=== PATIENT | male | born 1945 ===

== ENCOUNTER 2017-12-13 05:41 | Observation (INO) | payer MEDICARE, MEDICAID ==
[~2017-12-13] VITALS: Ht 177.8 cm; Wt 74.8 kg
[2017-12-13] VITALS (13 sets, daily range): BP systolic 142–164; BP diastolic 75–83
[2017-12-13] MEDS ORDERED: Iothalamate Meglumine 60% 30ML INJ ONE ×2 (06:13→08:07)
[2017-12-13] MEDS ORDERED: NKM (06:27)
[2017-12-13] MEDS ORDERED: fentaNYL 100 mcg/2 mL IV ONE (06:40)
[2017-12-13] MEDS ORDERED: Dexamethasone 4mg/ml vial ONE (06:40)
[2017-12-13] MEDS ORDERED: Propofol 200mg/20ml IV ONE (06:40)
[2017-12-13] MEDS ORDERED: Lidocaine 1% MPF 10mg/ml 5ml ONE (06:40)
[2017-12-13] MEDS ORDERED: Midazolam 2mg/2ml Inj ONE (06:41)
[2017-12-13] MEDS ORDERED: Succinylcholine 20mg/ml 10ml vial ONE (06:53)
[2017-12-13] MEDS ORDERED: NS Irrig 4000ml IRRIG ONE (07:00)
[2017-12-13] MEDS ORDERED: ceFAZolin sod 1 GM in NS 55 ML IVPB SCH (07:00)
[2017-12-13] MEDS ORDERED: NS Irrig 1000ml ONE (07:00)
[2017-12-13] MEDS ORDERED: Sterile Water Irrig 1000ml IRRIG ONE (07:00)
[2017-12-13] MEDS ORDERED: LR 1000ml ONE (07:00)
--- NOTE | 2017-12-13 07:12 | Anethesia Preoperative Eval ---
Anesthesia Pre-op PMH/ROS General Date of Evaluation: Dec 13, 2017 Time of Evaluation: 07:00 Anesthesiologist: Devon ASA Score: ASA 3 Mallampati Score Class I : Soft palate, uvula, fauces, pillars visible Class II: Soft palate, uvula, fauces visible Class III: Soft palate, base of uvula visible Class IV: Only hard plate visible Mallampati Classification: Class I Surgeon: B Diagnosis: Renal CA hydronephrosis Surgical Procedure: cysto, retrograde pyelogram, stent placement Anesthesia History: none Family History: no anesthesia problems Allergies: Coded Allergies: No Known Allergies (Unverified , 12/12/17) Medications: see eMAR Past Medical History Cardiovascular: Reports: HTN, other - unclear h/o of a fib PMH Narrative: renall cancer colon cancer chemotherapy Anesthesia Pre-op Phys. Exam Physician Exam Last Vital Signs Date Time Temp Pulse Resp B/P (MAP) Pulse Ox O2 Delivery O2 Flow Rate FiO2 12/13/17 06:28 Room Air 12/13/17 06:25 97.8 57 18 162/77 (105) 99 97.8 Constitutional: NAD Neurologic: other Cardiovascular: RRR Respiratory: CTA Airway Exam Mallampati Score: Class I MO: full ROM: full Anesthesia Pre-op A/P Risk Assessment & Plan Assessment: ASA 3 Plan: GA with LMA vs ETT PONV prophylaxis periop ABX Status Change Before Surgery: No Pre-Antibiotics Drug: ANCEF 2 G Given Within 1 Hr of Incision: Yes Hailee Osorio M.D. Dec 13, 2017 07:12
--- NOTE | 2017-12-13 07:15 | Urology Progress Note ---
Assessment/Plan Assessment/Plan left hydro BPH hx LUTS hx plan left ureteral stent d/w pt fully Subjective Allergies: Coded Allergies: No Known Allergies (Unverified , 12/12/17) Subjective hx of met colon ca, left hydro, for stent today Objective Last 24 Hour Vital Signs Date Time Temp Pulse Resp B/P (MAP) Pulse Ox O2 Delivery O2 Flow Rate FiO2 12/13/17 06:28 Room Air 12/13/17 06:25 97.8 57 18 162/77 (105) 99 97.8 Height (Feet): 5 Height (Inches): 10.00 Weight (Pounds): 165 Objective exam stable TOÑOFRANCHESKAARIEL Dec 13, 2017 07:15
--- NOTE | 2017-12-13 07:16 | Pre-Procedure Note/Attestation ---
Pre-Procedure Note/Attestation Complete Prior to Procedure Planned Procedure: left Procedure Narrative: cysto, left retrograde, ureteroscopy, ureteral stent Indications for Procedure Pre-Operative Diagnosis: hydronephrosis Attestation I attest that I discussed the nature of the procedure; its benefits; risks and complications; and alternatives (and the risks and benefits of such alternatives ), prior to the procedure, with the patient (or the patient's legal technical sales representative). I attest that, if there was a reasonable possibility of needing a blood transfusion, the patient (or the patient's legal technical sales representative) was given the [facility] standardized written summary, pursuant to the Mark Hagerman Blood Safety Act ([place] Health and Safety Code # 1645, as amended). I attest that I re-evaluated the patient just prior to the surgery and that there has been no change in the patient's H&P, except as documented below: ARIEL THOMPSON Dec 13, 2017 07:16
[2017-12-13] MEDS ORDERED: Glycopyrrolate 0.2mg/ml 1ml Vial ONE (07:31)
[2017-12-13] MEDS ORDERED: Atropine Inj 1mg/10ml Syr IV PRN (08:30)
[2017-12-13] MEDS ORDERED: Hydromorphone 0.5mg/0.5ml inj IVP PRN (08:30)
[2017-12-13] MEDS ORDERED: Metoclopramide 10mg/2ml Inj IVP PRN (08:30)
[2017-12-13] MEDS ORDERED: fentaNYL 100 mcg/2 mL IV PRN (08:30)
--- NOTE | 2017-12-13 08:49 | Brief Operative Note ---
Immediate Post Operative Note Operative Note Pre-op Diagnosis: hydronephrosis Post-op Diagnosis: same as pre-op Findings: other - very tight stricture/stenosis of mid left ureter with significant turtousity and dilation of prox collecting system Surgeon: julius Anesthesiologist: nanci Anesthesia: general Specimen: none Complications: none Condition: stable Fluids: NS Estimated Blood Loss: minimal Implant(s) used?: Yes - 7f x 24 cm left ureteral JJ stent ARIEL THOMPSON Dec 13, 2017 08:49
--- NOTE | 2017-12-13 09:07 | Immediate Post-Op Evaluation ---
Immediate Post-Op Evalulation Immediate Post-Op Evalulation Procedure: cysto retrograde pyelogram L ureteroscopy with dilation and stent placement Date of Evaluation: Dec 13, 2017 Time of Evaluation: 08:39 IV Fluids: 500 Blood Products: none Estimated Blood Loss: minimal Urinary Output: in the field Blood Pressure Systolic: 160 Blood Pressure Diastolic: 77 Pulse Rate: 74 Respiratory Rate: 18 O2 Sat by Pulse Oximetry: 100 Temperature (Fahrenheit): 98.4 Pain Score (1-10): 0 Nausea: No Vomiting: No Patient Status: awake, reacts, extubated Hydration Status: adequate Drug: Ancef Given Within 1 Hr of Incision: Yes Time Given: 07:29 Hailee Osorio M.D. Dec 13, 2017 09:07
--- NOTE | 2017-12-13 09:08 | 48 Hour Post Anesthesia Eval ---
Post Anesthesia Evaluation Procedure: cysto retrograde pyelogram L ureteroscopy with dilation and stent placement Date of Evaluation: Dec 13, 2017 Time of Evaluation: 09:07 Blood Pressure Systolic: 144 0: 71 Pulse Rate: 62 Respiratory Rate: 18 Temperature (Fahrenheit): 98.4 O2 Sat by Pulse Oximetry: 99 Airway: patent Nausea: No Vomiting: No Pain Intensity: 0 Hydration Status: adequate Mental Status/LOC: patient returned to baseline Post-Anesthesia Complications: none Follow-up care needed: N/A Hailee Osorio M.D. Dec 13, 2017 09:08
--- NOTE | 2017-12-13 10:41 | History & Physical ---
History and Physical History & Physicial seen and examined. Full Dictation completed Misa Phillips MD Dec 13, 2017 10:41
--- NOTE | 2017-12-13 11:04 | Diagnostic Imaging Report ---
Indication: History of hydronephrosis, intraoperative imaging Technique: Intraoperative images Comparison: none Findings: Intraoperative imaging demonstrates opacification of the left inferior and hydronephrotic left renal collecting system, subsequently placement of left nephroureteral stent Impression: Intraoperative imaging, as described
[2017-12-13] MEDS ORDERED: Norco 5mg/325mg tab ORAL PRN (12:55)
[2017-12-13] MEDS: ceFAZolin 1gm/50ml Premix 50 ML IV SCH (15:32)
[2017-12-13] MEDS: D5NS 1,000 ML IV SCH (15:32)
[2017-12-13] MEDS: Metoprolol 25mg tab ORAL SCH (20:40)
[2017-12-13] MEDS: Amiodarone 200mg tab ORAL SCH (20:40)
[2017-12-13] MEDS ORDERED: Tamsulosin 0.4mg cap ORAL SCH (21:00)
--- NOTE | 2017-12-13 22:00 | History and Physical Report ---
DATE OF ADMISSION: 12/13/2017 SOURCE OF INFORMATION: The patient and the EMR. HISTORY OF PRESENT ILLNESS: The patient is an unfortunate, pleasant 72-year-old male with history of metastatic colon cancer, lymphoma, and renal cancer. The patient is status post elective surgery secondary to the obstructive hydronephrosis on the left side. At the time of evaluation, the patient denies any chest pain or shortness of breath. No nausea. No vomitus. No diarrhea. No constipation. PAST MEDICAL HISTORY: Metastatic colon cancer, renal cancer, lymphoma, and atrial fibrillation. PAST SURGICAL HISTORY: History of liver biopsy and colectomy. ALLERGIES: NKDA. MEDICATIONS: Outpatient medications including Eliquis, finasteride, tamsulosin, amiodarone, and metoprolol. SOCIAL HISTORY: The patient lives in an independent living. Positive for THC as outpatient. Denies history of alcohol abuse or tobacco use. FAMILY HISTORY: Reviewed and noncontributory. REVIEW OF SYSTEMS: All 12 elements of review of systems reviewed, pertinent positive and negative as above. PHYSICAL EXAMINATION: VITAL SIGNS: Blood pressure 160/80, temperature 98.2 degrees, pulse oximetry 98% on room air, respiratory rate 18, and pulse rate 60-70. HEAD AND NECK: Atraumatic and normocephalic. CHEST: Clear to auscultation. No wheezing. No crackles. HEART: S1 and S2. Regular rate and rhythm. ABDOMEN: Protuberant. Bowel sounds are normal. NEUROLOGIC: The patient is awake, alert, and oriented x3. MUSCULOSKELETAL: No gross focal motor deficit. GENITALIA: Jackson in place. LABORATORY AND DIAGNOSTIC DATA: Current laboratory results pending. ASSESSMENT AND PLAN: 1. Obstructive left-sided hydronephrosis at the level of mid ureter, status post elective surgery followed by stent placements. 2. Metastatic colon cancer. 3. Renal cancer. 4. Lymphoma. 5. Hypertension. 6. Atrial fibrillation. 7. Benign prostatic hypertrophy. 8. Gastrointestinal and deep venous thrombosis prophylaxis. I will resume the outpatient medications. Current postoperative management per Dr. Rice. Oncology, Dr. Jean, has been consulted. Misa Phillips M.D. DR: MIRELA JOB#: [id number] CC:
[2017-12-14] MEDS: ceFAZolin 1gm/50ml Premix 50 ML IV SCH ×2 (01:41→08:36)
[2017-12-14] MEDS: D5NS 1,000 ML IV SCH (01:41)
--- NOTE | 2017-12-14 03:00 | Consultation ---
DATE OF CONSULTATION: 12/13/2017 HEMATOLOGY/ONCOLOGY CONSULTATION CONSULTING PHYSICIAN: Melquiades Jean M.D. REQUESTING PHYSICIAN: Misa Phillips M.D. REASON FOR CONSULTATION: Evaluation of metastatic colon cancer. IDENTIFYING DATA: Dear Dr. Phillips: The patient is a pleasant 72-year-old male whom I have seen multiple times in the past. At this time, he has a history of metastatic colon cancer and getting chemotherapy in the office, status post procedure with Urology. He had stent placement by Dr. Rice. Hematology Service was consulted for further evaluation and treatment. PAST MEDICAL HISTORY: Metastatic colon cancer. PAST SURGICAL HISTORY: Status post stent placement in . ALLERGIES: No known drug allergies. FAMILY HISTORY: Noncontributory. REVIEW OF SYSTEMS: CONSTITUTIONAL: No fevers, chills, or night sweats. SKIN: No rashes, bumps, or itching. HEENT: No headache, hearing or visual changes. BREASTS: No lumps, pain, or discharge. PULMONARY: No cough, sputum, or shortness of breath. GASTROINTESTINAL: No nausea, vomiting, or diarrhea. GENITOURINARY: No dysuria, frequency, or urgency. MUSCULOSKELETAL: No joint swelling, muscle pain, or trauma. PHYSICAL EXAMINATION: VITAL SIGNS: Reviewed. GENERAL: No acute distress. PULMONARY: Decreased breath sounds. Some crackles at the bases. CARDIOVASCULAR: Regular rate. No S3 or S4. ABDOMEN: Soft, nontender, and nondistended. EXTREMITIES: No cyanosis, clubbing, or edema. LABORATORY DATA: Labs are pending. ASSESSMENT AND RECOMMENDATIONS: 1. Metastatic colon cancer. Continue chemotherapy in the office. 2. Anemia due to underlying anemia of chronic disease. Continue to closely monitor. 3. Hypertension. Systolic blood pressure goal is less than 140. 4. Hydronephrosis, status post stent placement. CEA is pending. 5. due to metastatic colon cancer. I appreciate the consultation. Melquiades Jean M.D. DR: TAYLER JOB#: [id number] CC:
--- NOTE | 2017-12-14 04:30 | Operative Note - Dictated ---
DATE OF OPERATION: 12/13/2017 "NOTE: POOR AUDIO QUALITY" PREOPERATIVE DIAGNOSIS: Left-sided hydronephrosis. POSTOPERATIVE DIAGNOSIS: Left-sided hydronephrosis. PROCEDURES PERFORMED: Cystoscopy, urethral calibration, left ureteroscopy, dilation of ureter, retrograde pyelogram, and placement of double-J stent. OPERATING SURGEON: Ruel Rice M.D. ANESTHESIOLOGIST: Hailee Osorio M.D. ANESTHESIA: General. INDICATION FOR PROCEDURE: This is a pleasant 72-year-old male. He has a history of metastatic colon cancer. He had a recent imaging study that showed some left-sided hydronephrosis, presumably secondary to compression of the ureter from adenopathy, and a decision was made to place a stent on obstructive kidney and maximize his renal function. The nature of the procedure was discussed with the patient extensively in detail. Possible risks and complication of bleeding, infection, anesthesia, damage to the urethra, bladder, and ureter, and need for further surgery were discussed. No guarantees were given or implied. FINDINGS: The patient appeared with a low-lying kidney. He had a very severe stricture seen in the mid ureter at the level of the pelvic brim. This was dilated. He had significant tortuosity of the ureter. The stent was placed. PROCEDURE IN DETAIL: Informed consent was obtained from the patient. The patient was brought to the operating room and then placed in supine position. After successful general anesthesia was induced, the patient was then placed in a modified dorsal lithotomy position, and genital area was then prepped and draped in usual sterile fashion. Preoperative IV antibiotics were administered. Time-out was performed. At this point, the distal urethral meatus was gently dilated. Cystoscopy was performed. The urethra was without strictures. The prostate was moderately obstructed. The bladder was inspected. I did not see any tumors. The left urethral orifice was identified and cannulated with an open-ended catheter. Retrograde pyelogram was done. There was significant stricture at area of the ureter in the mid ureter with some draining the contrast proximally. The kidney appeared to be low-lying. I have been attempting to pass the wire through this area and significant obstruction was noted. I tried both angled wire and straight wire, and again it was very difficult to pass the wire through. I was eventually able to negotiate the wire into the proximal part of the collecting system. It appeared that the proximal part was also severely torturous and the collecting system was moderately dilated, but the kidney appeared to be low-lying. The wire was then left as a safety wire. Ureteroscopy was then performed. The ureter distally was very tight and again with significant stricture formation. Again, I believe secondary to extrinsic compression. I then used a 10-Polish dual-lumen catheter to dilate this and the wire was cystoscope and a 7-Polish x 24 cm double-J stent was then passed up into the collecting system under fluoroscopic and visual guidance, appeared to be in good position with a good curl in the proximal collecting system and good curl in the bladder. Small tumor was in the bladder and the Jackson catheter was removed. The patient was awakened and taken to the recovery room in stable condition. Blood loss was minimal. No complication. Ruel Rice M.D. DR: JOE JOB#: [id number] CC: Wyatt Jean MD; Fax#: [phone] SHANA STEPHENSON M.D. ; FAX#: [phone]
[2017-12-14 07:20] LABS: ALANINE AMINOTRANSFERASE 19 U/L (12-78); ALBUMIN 3.2 G/DL (3.4-5.0); ALKALINE PHOSPHATASE 196 U/L (46-116); ANION GAP 13 mmol/L (5-15); ASPARTATE AMINO TRANSFERASE 27 U/L (15-37); BILIRUBIN,TOTAL 0.5 MG/DL (0.2-1.0); BLOOD UREA NITROGEN 21 mg/dL (7-18); CARBON DIOXIDE 23 MMOL/L (21-32); CHLORIDE 102 MMOL/L (98-107); CREATININE 1.2 MG/DL (0.55-1.30); SODIUM 138 MMOL/L (136-145)
[2017-12-14 07:24] LABS: HEMATOCRIT 32.7 % (42.0-52.0); MEAN CORPUSCULAR VOLUME 87 FL (80-99); PLATELET COUNT 97 K/UL (150-450); RED BLOOD COUNT 3.77 M/UL (4.70-6.10); RED CELL DISTRIBUTION WIDTH 13.8 % (11.6-14.8)
[2017-12-14 08:36] VITALS: BP 162/73
[2017-12-14] MEDS: Amiodarone 200mg tab ORAL SCH (08:36)
[2017-12-14] MEDS: Metoprolol 25mg tab ORAL SCH (08:36)
[2017-12-14] MEDS ORDERED: Enoxaparin 40mg Inj SUBQ SCH (09:00)
--- NOTE | 2017-12-14 09:09 | Urology Progress Note ---
Assessment/Plan Assessment/Plan left hydro BPH hx LUTS hx POD # 1, s/p left ureteral stent doing fair quarles hand irrigated, no clots dc home with quarles and leg bag f/u in office Saturday to remove quarles rx for abx, uribel and norco Subjective Allergies: Coded Allergies: No Known Allergies (Unverified , 12/12/17) Subjective all noted, feels fair Objective Last 24 Hour Vital Signs Date Time Temp Pulse Resp B/P (MAP) Pulse Ox O2 Delivery O2 Flow Rate FiO2 12/14/17 08:36 78 162/73 12/13/17 20:40 61 162/75 12/13/17 17:07 97.3 12/13/17 16:08 97.3 12/13/17 16:00 98.3 72 19 142/83 (102) 100 98.3 12/13/17 12:00 97.3 58 18 154/75 (101) 100 97.3 12/13/17 11:00 Nasal Cannula 2.0 12/13/17 11:00 98.1 63 20 154/77 (102) 100 98.1 12/13/17 10:00 97.9 64 18 160/79 (106) 100 97.9 12/13/17 09:32 97.2 63 18 150/80 100 Nasal Cannula 3 97.2 12/13/17 09:20 63 16 153/78 100 Nasal Cannula 3 12/13/17 09:10 67 20 150/79 100 Nasal Cannula 3 Intake and Output 12/13/17 12/14/17 19:00 07:00 Intake Total 600 ml Output Total 1460 ml Balance -860 ml Intake IV Total 600 ml Output Urine Total 1450 ml Estimated Blood Loss 10 ml Current Medications Medications (Trade) Dose Ordered Sig/Sulma Route PRN Reason Start Time Stop Time Status Last Admin Dose Admin Acetaminophen/ Hydrocodone Bitart ([place] 5/325) 1 tab Q4H PRN ORAL Moderate Pain (Pain Scale 4-6) 12/13/17 12:55 12/20/17 12:54 12/13/17 16:08 Amiodarone HCl (Cordarone) 200 mg EVERY 12 HOURS ORAL 12/13/17 21:00 01/12/18 20:59 12/14/17 08:36 Cefazolin Sodium 50 ml @ 100 mls/hr Q8H IV 12/13/17 15:30 12/20/17 15:29 12/14/17 08:36 Dextrose/Sodium Chloride 1,000 ml @ 75 mls/hr [id number] IV 12/13/17 13:30 01/12/18 13:29 12/14/17 01:41 Enoxaparin Sodium (Lovenox) 40 mg DAILY SUBQ 12/14/17 09:00 01/13/18 08:59 Finasteride (Proscar) 5 mg DAILY ORAL 12/14/17 09:00 01/13/18 08:59 12/14/17 08:36 Metoprolol Tartrate (Lopressor) 25 mg Q12HR ORAL 12/13/17 21:00 01/12/18 20:59 12/14/17 08:36 Tamsulosin HCl (Flomax) 0.4 mg BEDTIME ORAL 12/13/17 21:00 01/12/18 20:59 12/13/17 20:40 Laboratory Tests 12/13/17 14:45: Carcinoembryonic Antigen [Pending] 12/14/17 05:00: White Blood Count 9.0, Red Blood Count 3.77L, Hemoglobin 11.0L, Hematocrit 32.7L , Mean Corpuscular Volume 87, Mean Corpuscular Hemoglobin 29.2, Mean Corpuscular Hemoglobin Concent 33.7, Red Cell Distribution Width 13.8, Platelet Count 97L, Mean Platelet Volume 8.1, Neutrophils (%) (Auto) , Lymphocytes (%) ( Auto) , Monocytes (%) (Auto) , Eosinophils (%) (Auto) , Basophils (%) (Auto) , Neutrophils % (Manual) [Pending], Lymphocytes % (Manual) [Pending], Platelet Estimate [Pending], Platelet Morphology [Pending], Sodium Level 138, Potassium Level 4.0, Chloride Level 102, Carbon Dioxide Level 23, Anion Gap 13, Blood Urea Nitrogen 21H, Creatinine 1.2, Estimat Glomerular Filtration Rate , Glucose Level 117H, Calcium Level 8.0L, Total Bilirubin 0.5, Aspartate Amino Transf (AST /SGOT) 27, Alanine Aminotransferase (ALT/SGPT) 19, Alkaline Phosphatase 196H, Total Protein 6.5, Albumin 3.2L, Globulin 3.3, Albumin/Globulin Ratio 1.0 Height (Feet): 5 Height (Inches): 10.00 Weight (Pounds): 165 Objective exam, quarles indwelling, urine is blood-tinged ARIEL THOMPSON Dec 14, 2017 09:09
[2017-12-14] MEDS ORDERED: CIPROFLOXACIN500 M2 ORAL (09:28)
[2017-12-14] MEDS ORDERED: NORCO 10-325 T1 EACH ORAL (09:28)
--- NOTE | 2017-12-14 13:18 | General Progress Note ---
Assessment/Plan Assessment/Plan S: I am ok O: appearrs comfortble, post procedure. FU PRN PHYSICAL EXAMINATION:HEAD AND NECK: Atraumatic and normocephalic. CHEST: Clear to auscultation. No wheezing. No crackles. HEART: S1 and S2. Regular rate and rhythm. ABDOMEN: Protuberant. Bowel sounds are normal. NEUROLOGIC: The patient is awake, alert, and oriented x3. MUSCULOSKELETAL: No gross focal motor deficit. GENITALIA: Jackson in place. LABORATORY AND DIAGNOSTIC DATA: Current laboratory results pending. Meds: reviewed. on PO ciprofloxacin ASSESSMENT AND PLAN: 1. Obstructive left-sided hydronephrosis at the level of mid ureter, status post elective surgery followed by stent placements. 2. Metastatic colon cancer. 3. Renal cancer. 4. Lymphoma. 5. Hypertension. 6. Atrial fibrillation. 7. Benign prostatic hypertrophy. 8. Gastrointestinal and deep venous thrombosis prophylaxis. Plan: Medically stable for outpatient followup Subjective Allergies: Coded Allergies: No Known Allergies (Unverified , 12/12/17) Objective Last 24 Hour Vital Signs Date Time Temp Pulse Resp B/P (MAP) Pulse Ox O2 Delivery O2 Flow Rate FiO2 12/14/17 08:36 78 162/73 12/13/17 20:40 61 162/75 12/13/17 17:07 97.3 12/13/17 16:08 97.3 12/13/17 16:00 98.3 72 19 142/83 (102) 100 98.3 Intake and Output 12/13/17 12/14/17 19:00 07:00 Intake Total 600 ml Output Total 1460 ml Balance -860 ml Intake IV Total 600 ml Output Urine Total 1450 ml Estimated Blood Loss 10 ml Laboratory Tests 12/13/17 14:45: Carcinoembryonic Antigen [Pending] 12/14/17 05:00: White Blood Count 9.0, Red Blood Count 3.77L, Hemoglobin 11.0L, Hematocrit 32.7L , Mean Corpuscular Volume 87, Mean Corpuscular Hemoglobin 29.2, Mean Corpuscular Hemoglobin Concent 33.7, Red Cell Distribution Width 13.8, Platelet Count 97L, Mean Platelet Volume 8.1, Neutrophils (%) (Auto) , Lymphocytes (%) ( Auto) , Monocytes (%) (Auto) , Eosinophils (%) (Auto) , Basophils (%) (Auto) , Differential Total Cells Counted 100, Neutrophils % (Manual) 69, Lymphocytes % ( Manual) 29, Monocytes % (Manual) 1, Eosinophils % (Manual) 1, Basophils % ( Manual) 0, Band Neutrophils 0, Platelet Estimate DecreasedL, Platelet Morphology Normal, Hypochromasia 1+, Anisocytosis 1+, Sodium Level 138, Potassium Level 4.0, Chloride Level 102, Carbon Dioxide Level 23, Anion Gap 13, Blood Urea Nitrogen 21H, Creatinine 1.2, Estimat Glomerular Filtration Rate , Glucose Level 117H, Calcium Level 8.0L, Total Bilirubin 0.5, Aspartate Amino Transf (AST/SGOT) 27, Alanine Aminotransferase (ALT/SGPT) 19, Alkaline Phosphatase 196H, Total Protein 6.5, Albumin 3.2L, Globulin 3.3, Albumin/ Globulin Ratio 1.0 Height (Feet): 5 Height (Inches): 10.00 Weight (Pounds): 165 Misa Phillips MD Dec 14, 2017 13:18
--- NOTE | 2017-12-14 14:55 | General Progress Note ---
Assessment/Plan Status: stable Assessment/Plan 1. Metastatic colon cancer. Continue chemotherapy in the office. 2. Anemia due to underlying anemia of chronic disease. Continue to closely monitor. 3. Hypertension. Systolic blood pressure goal is less than 140. 4. Hydronephrosis, status post stent placement. CEA is pending. The time the note was entered does not necessarily correspond to the time the patient was seen. Subjective Date patient seen: Dec 14, 2017 ROS Limited/Unobtainable: Yes Hematologic/Lymphatic: Reports: anemia Allergies: Coded Allergies: No Known Allergies (Unverified , 12/12/17) All Systems: reviewed and negative except above Subjective Pt is awake and alert. No acute events. DC planning. Objective Last 24 Hour Vital Signs Date Time Temp Pulse Resp B/P (MAP) Pulse Ox O2 Delivery O2 Flow Rate FiO2 12/14/17 08:36 78 162/73 12/13/17 20:40 61 162/75 12/13/17 17:07 97.3 12/13/17 16:08 97.3 12/13/17 16:00 98.3 72 19 142/83 (102) 100 98.3 Intake and Output 12/13/17 12/14/17 19:00 07:00 Intake Total 600 ml Output Total 1460 ml Balance -860 ml Intake IV Total 600 ml Output Urine Total 1450 ml Estimated Blood Loss 10 ml Laboratory Tests 12/14/17 05:00: White Blood Count 9.0, Red Blood Count 3.77L, Hemoglobin 11.0L, Hematocrit 32.7L , Mean Corpuscular Volume 87, Mean Corpuscular Hemoglobin 29.2, Mean Corpuscular Hemoglobin Concent 33.7, Red Cell Distribution Width 13.8, Platelet Count 97L, Mean Platelet Volume 8.1, Neutrophils (%) (Auto) , Lymphocytes (%) ( Auto) , Monocytes (%) (Auto) , Eosinophils (%) (Auto) , Basophils (%) (Auto) , Differential Total Cells Counted 100, Neutrophils % (Manual) 69, Lymphocytes % ( Manual) 29, Monocytes % (Manual) 1, Eosinophils % (Manual) 1, Basophils % ( Manual) 0, Band Neutrophils 0, Platelet Estimate DecreasedL, Platelet Morphology Normal, Hypochromasia 1+, Anisocytosis 1+, Sodium Level 138, Potassium Level 4.0, Chloride Level 102, Carbon Dioxide Level 23, Anion Gap 13, Blood Urea Nitrogen 21H, Creatinine 1.2, Estimat Glomerular Filtration Rate , Glucose Level 117H, Calcium Level 8.0L, Total Bilirubin 0.5, Aspartate Amino Transf (AST/SGOT) 27, Alanine Aminotransferase (ALT/SGPT) 19, Alkaline Phosphatase 196H, Total Protein 6.5, Albumin 3.2L, Globulin 3.3, Albumin/ Globulin Ratio 1.0 Height (Feet): 5 Height (Inches): 10.00 Weight (Pounds): 165 General Appearance: no apparent distress EENT: PERRL/EOMI Neck: normal alignment Cardiovascular: normal peripheral pulses Respiratory/Chest: no respiratory distress Abdomen: soft Melquiades Jean MD Dec 14, 2017 14:55
--- NOTE | 2017-12-20 11:08 | Discharge Summary ---
Discharge Summary Hospital Course Date of Admission Dec 13, 2017 at 10:19 Date of Discharge Dec 14, 2017 at 10:00 Admitting Diagnosis obstructive left sided hydronephrosis Reason for Hospitalization: surgery HPI Martinez Walsh is a 72 year old male with past medical history of metastatic colon cancer, lymphoma, renal cancer, hypertension, atrial fibrillation, BPH, admitted on Dec 13, 2017 for obstructive left sided hydronephrosis and hematuria. Patient admitted for surgery Consultations dr Phillips -IM dr Jean-oncologist Procedures s/p 12/13/[address] Rice Cystoscopy, urethral calibration, left ureteroscopy, dilation of ureter, retrograde pyelogram, and placement of double-J stent. Hospital Course s/p surgery with findings of very tight stricture/stenosis of mid left ureter with significant tortuosity and dilation of prox collecting system s/p double J stent placement course of recovery uneventful initially IVF empiric antibiotic Jackson cath , no clots on manual irrigation pain management , controlled tolerated diet, a/emetic prn Flomax and Proscar continued BP closely monitored and managed by IM doctor BB and Amiodarone continued, heart rate controlled bowel regimen institute oncologist followed anemia of underlying chronic disease, HH at baseline CEA significantly elevated -249 DVT, GI prophayxlis surgeon cleared for dc with Jackson ; leg bag provided fup with urologist at office as outpt for removal of Jackson scripts provided for [place], [place] and antibiotic FINAL DIAGNOSES obstructive left hydronephrosis s/p cystoscopy, urethral calibration, left ureteroscopy, dilation of ureter, retrograde pyelogram, and placement of double-J stent metastatic colon cancer lymphoma renal cancer hypertension atrial fibrillation BPH anemia due to underlying anemia of chronic disease. Discharge Medications Continued Medications: Ciprofloxacin Hcl* (Ciprofloxacin Hcl*) 500 Mg Tablet 500 MG ORAL EVERY 12 HOURS, TAB 0 Refills (This prescription has been renewed) Hydrocodone Bit/Acetaminophen 10-325* ([place] 10-325*) 1 Each Tablet 1 TAB ORAL Q4H PRN for For Pain, TAB 0 Refills (This prescription has been renewed) PRN PAIN Discharge Discharge Disposition Patient was discharged to Home () Discharge Instructions Discharge Instructions Special Instructions I have been assigned to complete a D/C Summary on this account. I was not involved in the patient management Nhi Harris NP Dec 20, 2017 11:08
== END 2017-12-14 10:00 | disposition home or self-care (01) ==
LOC: SUR 05:41 → 3E 10:19 → UNDODISOB 12-14 10:00
DX: N13.1 Hydronephrosis with ureteral stricture, not elsewhere classified (principal); C18.9 Malignant neoplasm of colon, unspecified; C79.9 Secondary malignant neoplasm of unspecified site; C64.9 Malignant neoplasm of unspecified kidney, except renal pelvis; C85.90 Non-Hodgkin lymphoma, unspecified, unspecified site; I10 Essential (primary) hypertension; I48.91 Unspecified atrial fibrillation; Z79.01 Long term (current) use of anticoagulants; D63.8 Anemia in other chronic diseases classified elsewhere; N40.1 Benign prostatic hyperplasia with lower urinary tract symptoms; N13.8 Other obstructive and reflux uropathy
CPT/HCPCS: 36415; 52332; 52351; 74420; 76000; 80053; 82378; 85007; 85025; 96360 ×2; 96365 ×2; G0378 ×2; G0379; J0360; J0690 ×2; J1100; J2250; J2405; J2704; J3010; J7120; Q9961; 94003; 94150

== ENCOUNTER 2018-05-16 05:07 | Day surgery (SDC) | payer MEDICARE, MEDICAID ==
[2018-05-16] VITALS (14 sets, daily range): BP systolic 128–207; BP diastolic 75–108
[~2018-05-16] VITALS: Ht 177.8 cm; Wt 72.6 kg
[~2018-05-16 05:07] MED LIST: CIPROFLOXACIN500 M2 ORAL; NKM; NORCO 10-325 T1 EACH ORAL
[2018-05-16] MEDS ORDERED: METOPROLOL TART50 MG ORAL (05:49)
[2018-05-16] MEDS ORDERED: LR 1000ml 1,000 ML IVLG SCH (06:31)
--- NOTE | 2018-05-16 06:31 | Anethesia Preoperative Eval ---
Anesthesia Pre-op PMH/ROS General Date of Evaluation: May 16, 2018 Anesthesiologist: Morgan ASA Score: ASA 3 Mallampati Score Class I : Soft palate, uvula, fauces, pillars visible Class II: Soft palate, uvula, fauces visible Class III: Soft palate, base of uvula visible Class IV: Only hard plate visible Mallampati Classification: Class I Surgeon: Dwayne Diagnosis: Left hydronephrosis Surgical Procedure: cystoscopy, ureteroscopy, stent exchange Anesthesia History: none Family History: no anesthesia problems Allergies: Coded Allergies: No Known Allergies (Unverified , 12/12/17) Medications: see eMAR Patient NPO?: Yes NPO Date: May 16, 2018 NPO Time: 22:00 Past Medical History Cardiovascular: Reports: HTN; Denies: CAD, [place], valve dz, arrhythmia, other Pulmonary: Denies: asthma, COPD, SANTOSH, other Gastrointestinal/Genitourinary: Reports: other - BPH; Denies: GERD, CRI, ESRD Neurologic/Psychiatric: Denies: dementia, CVA, depression/anxiety, TIA, other Endocrine: Denies: DM, hypothyroidism, steroids, other HEENT: Denies: cataract (L), cataract (R), glaucoma, EMMONAK (L), EMMONAK (R), other Hematology/Immune: Denies: anemia, DVT, bleeding disorder, other Musculoskeletal/Integumentary: Denies: OA, RA, DJD, DDD, edema, other Other: other - colon cancer, kidney cancer, leukemia PSxH Narrative: left nephrectomy, colon resectin Anesthesia Pre-op Phys. Exam Physician Exam Last Vital Signs Date Time Temp Pulse Resp B/P (MAP) Pulse Ox O2 Delivery O2 Flow Rate FiO2 05/16/18 05:54 97.7 72 18 192/92 100 Room Air Constitutional: NAD Cardiovascular: RRR Respiratory: CTA Airway Exam Mallampati Score: Class II MO: limited ROM: limited Anesthesia Pre-op A/P Labs see chart Studies Pre-op Studies: EKG - sr Risk Assessment & Plan Assessment: ASA III Plan: GA Status Change Before Surgery: No Pre-Antibiotics Drug: Glory Almaguer MD May 16, 2018 06:31
[2018-05-16] MEDS ORDERED: DiphenhydrAMINE 50mg/ml Inj IVP PRN (06:45)
[2018-05-16] MEDS ORDERED: Metoclopramide 10mg/2ml Inj IVP PRN (06:45)
[2018-05-16] MEDS ORDERED: Hydromorphone 0.5mg/0.5ml inj IVP PRN (06:45)
[2018-05-16] MEDS ORDERED: fentaNYL 100 mcg/2 mL IV PRN (06:45)
[2018-05-16] MEDS ORDERED: LORazepam Inj 2mg/ml 1ml IV PRN (06:45)
[2018-05-16] MEDS ORDERED: Propofol 200mg/20ml IV ONE (06:55)
[2018-05-16] MEDS ORDERED: Midazolam 2mg/2ml Inj ONE (06:55)
[2018-05-16] MEDS ORDERED: fentaNYL 100 mcg/2 mL IV ONE (06:55)
[2018-05-16] MEDS ORDERED: Lidocaine 1% MPF 10mg/ml 5ml ONE (06:55)
[2018-05-16] MEDS ORDERED: Cefepime HCl 1 GM in D5W 55 ML IVPB ONE (07:00)
[2018-05-16] MEDS ORDERED: NS Irrig 1000ml ONE (07:00)
[2018-05-16] MEDS ORDERED: Labetalol 5mg/ml 20ml vial IV ONE (07:00)
[2018-05-16] MEDS ORDERED: LR 1000ml ONE (07:00)
[2018-05-16] MEDS ORDERED: Iothalamate Meglumine 60% 30ML INJ ONE (07:04)
--- NOTE | 2018-05-16 07:15 | Urology Progress Note ---
Assessment/Plan Assessment/Plan hx of left hydro, chronic BPH hx LUTS hx plan exchange of left ureteral stent today d/w pt fully Subjective Allergies: Coded Allergies: No Known Allergies (Unverified , 12/12/17) Subjective all noted, for left ureteral stent exchange today Objective Last 24 Hour Vital Signs Date Time Temp Pulse Resp B/P (MAP) Pulse Ox O2 Delivery O2 Flow Rate FiO2 05/16/18 05:54 97.7 72 18 192/92 100 Room Air 05/16/18 05:52 Room Air Height (Feet): 5 Height (Inches): 10 Weight (Pounds): 160 Objective exam stable Preop labs all noted Ruel Rice MD May 16, 2018 07:15
--- NOTE | 2018-05-16 07:17 | Pre-Procedure Note/Attestation ---
Pre-Procedure Note/Attestation Complete Prior to Procedure Planned Procedure: left Procedure Narrative: cystoscopy, exchange of ureteral stent, ureteroscopy with dilation Indications for Procedure Pre-Operative Diagnosis: hydronephrosis Attestation I attest that I discussed the nature of the procedure; its benefits; risks and complications; and alternatives (and the risks and benefits of such alternatives ), prior to the procedure, with the patient (or the patient's legal product sales representative). I attest that, if there was a reasonable possibility of needing a blood transfusion, the patient (or the patient's legal product sales representative) was given the [facility] standardized written summary, pursuant to the Mark Gilberto Blood Safety Act ([place] Health and Safety Code # 1645, as amended). I attest that I re-evaluated the patient just prior to the surgery and that there has been no change in the patient's H&P, except as documented below: Ruel Rice MD May 16, 2018 07:17
--- NOTE | 2018-05-16 08:27 | Brief Operative Note ---
Immediate Post Operative Note Operative Note Pre-op Diagnosis: hydronephrosis Procedure: cysto, exchange of left ureteral stent, ureteroscopy with dilation, retrograde pyelogram Post-op Diagnosis: same as pre-op Findings: consistent w/pre-op dx studies - severe stenosis of proximal left ureter, low lying left kidney Anesthesia: general Specimen: yes - ureteral stent Complications: none Condition: stable Fluids: NS Estimated Blood Loss: minimal Drains: none Implant(s) used?: Yes - 7f x 22 cm left ureteral JJ stent Ruel Rice MD May 16, 2018 08:27
--- NOTE | 2018-05-16 08:32 | Immediate Post-Op Evaluation ---
Immediate Post-Op Evalulation Immediate Post-Op Evalulation Procedure: Cystoscopy, left ureteroscopy, ureteral stent exchange Date of Evaluation: May 16, 2018 Time of Evaluation: 08:32 IV Fluids: 700 Blood Products: 0 Estimated Blood Loss: min Urinary Output: 0 Blood Pressure Systolic: 195 Blood Pressure Diastolic: 103 Pulse Rate: 71 Respiratory Rate: 17 O2 Sat by Pulse Oximetry: 100 Temperature (Fahrenheit): 97.8 Pain Score (1-10): 0 Nausea: No Vomiting: No Complications 0 Patient Status: awake, reacts, patent, none Hydration Status: adequate Drug: Ancef 1g Given Within 1 Hr of Incision: Yes Time Given: 07:20 Glory Moreira MD May 16, 2018 08:32
--- NOTE | 2018-05-16 08:32 | 48 Hour Post Anesthesia Eval ---
Post Anesthesia Evaluation Procedure: Cystoscopy, left ureteroscopy, ureteral stent exchange Date of Evaluation: May 16, 2018 Airway: patent Nausea: No Vomiting: No Pain Intensity: 0 Hydration Status: adequate Cardiopulmonary Status: at baseline Mental Status/LOC: patient returned to baseline Post-Anesthesia Complications: 0 Follow-up care needed: N/A - further care as per primary team Glory Moreira MD May 16, 2018 08:32
[2018-05-16] MEDS: D5 1/2NS 1,000 ML IV SCH ×2 (11:21→22:35)
--- NOTE | 2018-05-16 11:30 | NUR ---
NURSE NOTES: Received report from GRAY Cortes. Patient in bed resting, denies pain at this time with all belongings. No active s/s cardiac, respiratory distress noticed at this time. VS at the time of arrival T 97.5, HR 79, RR 21, O2 sat 99%, BP 178/87. Endorsed 10 mg of hydralazine given. IV on right forearm 20 G asymptomatic, intact, patent. IV running at prescribed rate. Bed in lowest position, side rails upx3, call light within reach. Patient AO x4, On 2L via NC. Will continue to monitor.
[2018-05-16] MEDS ORDERED: Morphine Sulfate 4mg/ml Inj (IV USE ONLY) IVP PRN (12:45)
[2018-05-16] MEDS: Metoprolol Succinate XL 50mg tab ORAL SCH (13:55)
--- NOTE | 2018-05-16 16:17 | History & Physical ---
History and Physical History & Physicial SOURCE OF INFORMATION: The patient and the EMR. HISTORY OF PRESENT ILLNESS: The patient is an unfortunate, pleasant 72-year-old male with history of metastatic colon cancer, lymphoma, and renal cancer. The patient is status post elective surgery secondary to the obstructive hydronephrosis on the left Ureter. At the time of evaluation, the patient denies any chest pain or shortness of breath. No nausea. No vomitus. No diarrhea. No constipation. PAST MEDICAL HISTORY: Metastatic colon cancer, renal cancer, lymphoma, and atrial fibrillation. Obstructive uropathy of left Ureter with stent in place PAST SURGICAL HISTORY: History of liver biopsy and colectomy. ALLERGIES: NKDA. MEDICATIONS: Outpatient medications including Eliquis, finasteride, tamsulosin, amiodarone, and metoprolol. SOCIAL HISTORY: The patient lives in an independent living. Positive for THC as outpatient. Denies history of alcohol abuse or tobacco use. FAMILY HISTORY: Reviewed and noncontributory. REVIEW OF SYSTEMS: All 12 elements of review of systems reviewed, pertinent positive and negative as above. PHYSICAL EXAMINATION: VITAL SIGNS: Blood pressure 170/80, temperature 98.2 degrees, pulse oximetry 98% on room air, respiratory rate 18, and pulse rate 60-70. HEAD AND NECK: Atraumatic and normocephalic. CHEST: Clear to auscultation. No wheezing. No crackles. HEART: S1 and S2. Regular rate and rhythm. ABDOMEN: Protuberant. Bowel sounds are normal. NEUROLOGIC: The patient is awake, alert, and oriented x3. MUSCULOSKELETAL: No gross focal motor deficit. GENITALIA: Jackson in place. LABORATORY AND DIAGNOSTIC DATA: Current laboratory results pending. ASSESSMENT AND PLAN: 1. Obstructive left-sided hydronephrosis at the level of mid ureter, status post Retrograde Cystoscopy and replacement of the stent. 2. Metastatic colon cancer. 3. Renal cancer. 4. Lymphoma. 5. Hypertension. 6. Paroxysmal Atrial fibrillation. 7. Benign prostatic hypertrophy. 8. Gastrointestinal and deep venous thrombosis prophylaxis. I will resume the outpatient medications. Current postoperative management per Dr. Rice. Oncology, Dr. Jean, has been consulted. Will resume bp medications Misa Phillips MD May 16, 2018 16:17
[2018-05-16] MEDS ORDERED: cloNIDine 0.2mg Tab ORAL PRN (16:21)
--- NOTE | 2018-05-16 16:45 | Diagnostic Imaging Report ---
Indication: Left stent placement. Intraoperative imaging Comparison: None Findings: 11 fluoroscopic images showing opacification of the left collecting system. The kidney appears to be low in the left lower quadrant of abdomen. Contrast passed patient the collecting system and stent placement noted. IMPRESSION: Intraoperative imaging
--- NOTE | 2018-05-16 19:36 | NUR ---
HAND-OFF: Report given to GRAY Nolan.
--- NOTE | 2018-05-16 19:40 | NUR ---
NURSE NOTES: Received pt from GRAY Main. Pt awake, alert, and talkative. Bed in lowest position. Call light within reach. Will continue to monitor.
[2018-05-16] MEDS ORDERED: Tamsulosin 0.4mg cap ORAL SCH (21:00)
--- NOTE | 2018-05-16 22:00 | Operative Note - Dictated ---
DATE OF OPERATION: 05/16/2018 PREOPERATIVE DIAGNOSIS: Left hydronephrosis. POSTOPERATIVE DIAGNOSIS: Left hydronephrosis. PROCEDURES PERFORMED: Cystoscopy, removal and exchange of left ureteral stent, left ureteroscopy with dilation of ureter, and retrograde pyelogram. OPERATING SURGEON: Ruel Rice M.D. ANESTHESIOLOGIST: Glory Govea M.D. ANESTHESIA: General. INDICATION FOR PROCEDURE: This is a pleasant 72-year-old male. He has a history of advanced colon cancer. He has a history of left hydronephrosis with obstruction of the ureter secondary to the compression. He had an ureteral stent that was placed a number of months ago and he is being brought back for exchange of the stent. The nature of the procedure including possible risks and complications of bleeding, infection, anesthesia, damage to the urethra, bladder, and ureter, and need for further surgery were discussed. No guarantees were given or implied. FINDINGS: The patient had what appeared to be a very tight stricture of the proximal left ureter. He had a low-lying kidney on the left side. A new stent was placed. PROCEDURE IN DETAIL: Informed consent was obtained from the patient. The patient was brought to the operating room and then placed in supine position. After successful general anesthesia was induced, the patient was then placed in a modified dorsal lithotomy position and genital area was then prepped and draped in the usual sterile fashion. Preoperative IV antibiotics were administered. Time-out was performed. At this time, the patient's urethra was gently dilated. Cystoscopy was then performed. Urethra was without strictures. Prostate was moderately obstructive. The bladder was inspected. The distal part of the stent was identified. There was small incrustation that were taken off with a grasper. I attempted to cannulate the left ureteral orifice with an open-ended catheter. A wire was attempted to be passed, however, I was not able to negotiate through the area of the stenosis in the proximal left ureter. I tried to put angled and straight wires, which were unsuccessful. At this point, I grabbed the stent and pulled the distal end out from the urethral meatus and I was able to pass a straight wire through the stent and negotiated into the kidney, which was low-lying. The old stent was removed intact. The wire was then left as a safety. Rigid ureteroscopy was then performed. There was significant stenosis noted in the proximal part of the ureter. Contrast was injected, but there was minimal contrast going up. I then removed the ureteroscope. I then sequentially dilated the stricture with a 10-Turkish dual-lumen catheter. Contrast was injected through the second port of the catheter. There was mild dilatation of the collecting system. The dual-lumen catheter was removed. The safety wire was removed with a cystoscope and a new 7-Turkish x 22 cm double-J stent was then passed up into the collecting system under fluoroscopic and visual guidance, appeared to be in good position with a good curl proximally in the renal pelvis as well as distally in the bladder. A small string was left within the bladder and Jackson catheter was placed. The patient was awake and was taken to recovery room in stable condition. Blood loss is minimal. No complications. Ruel Rice M.D. DR: JOSE JOB#: [id number] CC: Misa Phillips M.D.; Fax#: [phone] CHRISTINA RUIZ MD ; FAX#: [phone]
[2018-05-17] VITALS (7 sets, daily range): BP systolic 133–180; BP diastolic 81–114
--- NOTE | 2018-05-17 00:22 | NUR ---
NURSE NOTES: Dr. Rice called and gave instructions to remove Jackson at 0700 and also not D/C pt until Dr. Rice calls to clear him. Will continue to monitor.
--- NOTE | 2018-05-17 06:57 | NUR ---
NURSE NOTES: Jackson taken out. Will continue to monitor.
--- NOTE | 2018-05-17 07:31 | NUR ---
NURSE NOTES: pt awake alert, no distress. denies pain. quarles removed, reminded pt to notify rn if voids. call light within reach. will monitor.
--- NOTE | 2018-05-17 07:35 | NUR ---
HAND-OFF: Report given to GRAY Burnett. Pt stable.
[2018-05-17 07:44] LABS: HEMATOCRIT 32.7 % (42.0-52.0); HEMOGLOBIN 10.9 G/DL (14.2-18.0); MEAN CORPUSCULAR VOLUME 88 FL (80-99); PLATELET COUNT 56 K/UL (150-450); RED BLOOD COUNT 3.71 M/UL (4.70-6.10); RED CELL DISTRIBUTION WIDTH 13.9 % (11.6-14.8); WHITE BLOOD COUNT 5.2 K/UL (4.8-10.8)
[2018-05-17] MEDS: Metoprolol Succinate XL 50mg tab ORAL SCH (07:57)
[2018-05-17 08:10] LABS: ANION GAP 9 mmol/L (5-15); BLOOD UREA NITROGEN 13 mg/dL (7-18); CALCIUM 8.4 MG/DL (8.5-10.1); CARBON DIOXIDE 23 MMOL/L (21-32); CHLORIDE 102 MMOL/L (98-107); CREATININE 0.8 MG/DL (0.55-1.30); POTASSIUM 3.5 MMOL/L (3.5-5.1); SODIUM 134 MMOL/L (136-145)
--- NOTE | 2018-05-17 08:56 | Urology Progress Note ---
Assessment/Plan Assessment/Plan hx of left hydro, chronic BPH hx LUTS hx POD # 1, exchange of left ureteral stent monitor clinically flomax abx prophylaxis dc planning Subjective Allergies: Coded Allergies: No Known Allergies (Unverified , 12/12/17) Subjective all noted, quarles removed, voided Objective Last 24 Hour Vital Signs Date Time Temp Pulse Resp B/P (MAP) Pulse Ox O2 Delivery O2 Flow Rate FiO2 05/17/18 07:57 63 180/90 05/17/18 07:47 97.7 63 19 180/90 (120) 97 05/17/18 07:30 Room Air 05/17/18 04:00 67 05/17/18 04:00 97.7 69 19 133/81 (98) 97 05/17/18 00:00 74 05/17/18 00:00 98.0 71 19 139/88 (105) 98 05/16/18 21:00 Room Air 05/16/18 20:00 98.0 85 20 128/75 (92) 100 05/16/18 16:00 76 05/16/18 13:55 86 181/94 05/16/18 12:01 Nasal Cannula 2.0 05/16/18 12:00 79 05/16/18 12:00 97.5 79 21 178/87 (117) 99 05/16/18 10:22 97.9 78 19 176/96 100 Nasal Cannula 3 05/16/18 10:10 88 18 182/98 100 Nasal Cannula 3 05/16/18 09:53 78 15 174/91 100 Nasal Cannula 3 05/16/18 09:47 78 15 196/98 100 Nasal Cannula 3 05/16/18 09:25 74 15 179/96 100 Nasal Cannula 3 05/16/18 09:10 70 16 203/108 100 Nasal Cannula 3 05/16/18 09:10 203/108 Intake and Output 05/16/18 05/17/18 19:00 07:00 Intake Total 900 ml Output Total 950 ml 1400 ml Balance -50 ml -1400 ml IV Total 900 ml Output Urine Total 950 ml 1400 ml Current Medications Medications (Trade) Dose Ordered Sig/Sulma Route PRN Reason Start Time Stop Time Status Last Admin Dose Admin Acetaminophen (Tylenol) 650 mg Q4H PRN ORAL Mild Pain/Temp > 100.5 05/16/18 12:45 06/15/18 12:44 Clonidine HCl (Catapres tab) 0.2 mg Q4H PRN ORAL SBP more than 170 05/16/18 16:21 06/15/18 16:20 Dextrose/Sodium Chloride 1,000 ml @ 75 mls/hr [id number] IV 05/16/18 09:15 06/15/18 09:14 05/16/18 11:21 Metoprolol Succinate (Toprol XL) 50 mg DAILY ORAL 05/16/18 13:15 06/15/18 13:14 05/17/18 07:57 Morphine Sulfate (Morphine Sulfate) 2 mg Q6H PRN IVP PAIN 4-10 05/16/18 12:45 05/23/18 12:44 Pantoprazole (Protonix) 40 mg DAILY ORAL 05/17/18 09:00 06/16/18 08:59 05/17/18 08:11 Tamsulosin HCl (Flomax) 0.4 mg BEDTIME ORAL 05/16/18 21:00 06/15/18 20:59 05/16/18 21:36 Laboratory Tests 05/17/18 05:43: White Blood Count 5.2, Red Blood Count 3.71L, Hemoglobin 10.9L, Hematocrit 32.7L , Mean Corpuscular Volume 88, Mean Corpuscular Hemoglobin 29.4, Mean Corpuscular Hemoglobin Concent 33.3, Red Cell Distribution Width 13.9, Platelet Count 56L, Mean Platelet Volume 8.4, Neutrophils (%) (Auto) , Lymphocytes (%) ( Auto) , Monocytes (%) (Auto) , Eosinophils (%) (Auto) , Basophils (%) (Auto) , Neutrophils % (Manual) [Pending], Lymphocytes % (Manual) [Pending], Platelet Estimate [Pending], Platelet Morphology [Pending], Sodium Level 134L, Potassium Level 3.5, Chloride Level 102, Carbon Dioxide Level 23, Anion Gap 9, Blood Urea Nitrogen 13, Creatinine 0.8, Estimat Glomerular Filtration Rate , Glucose Level 106, Calcium Level 8.4L Height (Feet): 5 Height (Inches): 10.00 Weight (Pounds): 160 Objective exam stable Ruel Rice MD May 17, 2018 08:56
--- NOTE | 2018-05-17 09:03 | NUR ---
CASE MANAGEMENT: INITIAL REVIEW 05/16/2018 72 YO M PRESENTED TO OUR ED FROM HOME CC: HYDRONEPHROSIS PMHx: HTN. METASTATIC COLON CANCER. LYMPHOMA. RENAL CA. SI:HYDRONEPHROSIS. T 98.2 HR RR 18 B/P 170/80 SATS 98% ON RA NO LABS TODAY IS: OR MEDS PATIENT ADMITTED UNDER OBS TO TELE 05/16/2018 @ 0913 DCP: PATIENT TO BE DISCHARGED TO HOME ONCE MEDICALLY CLEARED. PLAN OF CARE: Retrograde Cystoscopy and replacement of the stent 05/17/2018 SI:HYDRONEPHROSIS. T 97.7 HR 63 RR 19 B/P 180/90 SATS 97% ON RA NA 134 CA 8.4 IS: IVF @ 75 mL/HR FLOMAX PO QHS TOPROL PO QD PROTONIX PO QD TELE STATUS DCP: PATIENT TO BE DISCHARGED TO HOME ONCE MEDICALLY CLEARED. PLAN OF CARE: DATE OF OPERATION: 05/16/2018 PREOPERATIVE DIAGNOSIS: Left hydronephrosis. POSTOPERATIVE DIAGNOSIS: Left hydronephrosis. PROCEDURES PERFORMED: Cystoscopy, removal and exchange of left ureteral stent, left ureteroscopy with dilation of ureter, and retrograde pyelogram. Addendum: 05/17/18 at 1430 by Maria Antonia Bloom CM INTERQUAL MET FOR ACUTE
[2018-05-17] MEDS: D5 1/2NS 1,000 ML IV SCH (11:55)
[2018-05-17] MEDS ORDERED: CIPROFLOXACIN500 M2 ORAL ×2 (16:15→16:16)
[2018-05-17] MEDS ORDERED: D5 1/2NS 1000ml IV ONE (16:27)
--- NOTE | 2018-05-17 16:30 | NUR ---
PT LEFT IN STABLE CONDITION, IV REMOVED, ARM BAND REMOVED, NO BLEEDING. PT HAS ALL BELONGINGS. WILL MONITOR.
--- NOTE | 2018-05-17 21:25 | Consultation ---
History of Present Illness General Date patient seen: May 16, 2018 Present Illness HPI 72-year-old male with history of metastatic colon cancer, lymphoma, and renal cancer. The patient is status post elective surgery secondary to the obstructive hydronephrosis the pt pw anxiety and fatigue. in addition the pt has insomnia. Allergies: Coded Allergies: No Known Allergies (Unverified , 12/12/17) Medication History Scheduled Ciprofloxacin Hcl* (Ciprofloxacin Hcl*), 500 MG ORAL EVERY 12 HOURS, (Reported) Ciprofloxacin Hcl* (Ciprofloxacin Hcl*), 500 MG ORAL BID, (Reported) Metoprolol Tartrate* (Metoprolol Tartrate*), 50 MG ORAL DAILY, (Reported) Discontinued Medications Ciprofloxacin Hcl* (Ciprofloxacin Hcl*), 500 MG ORAL BID, (Reported) Discontinued Reason: Medication dose changed Hydrocodone Bit/Acetaminophen 10-325* ([place] 10-325*), 1 TAB ORAL Q4H PRN for For Pain, (Reported) Discontinued Reason: Pt stopped taking med Patient History Limited by: medical condition History Provided By: Patient, Medical Record, PMD Healthcare decision maker Resuscitation status Full Code Advanced Directive on File Past Medical/Surgical History Past Medical/Surgical History: (1) Status post cystoscopy Review of Systems Psychiatric: Reports: anxiety, emotional problems Physical Exam General Appearance: alert, mild distress Neurologic: oriented x 3, responsive, depressed affect Last 24 Hour Vital Signs Date Time Temp Pulse Resp B/P (MAP) Pulse Ox O2 Delivery O2 Flow Rate FiO2 05/17/18 16:17 68 139/91 (107) 05/17/18 13:20 70 157/87 (110) 05/17/18 12:02 69 05/17/18 11:46 177/92 05/17/18 11:42 97.0 70 177/92 (120) 05/17/18 09:42 64 157/114 (128) 05/17/18 07:57 63 180/90 05/17/18 07:47 84 05/17/18 07:47 97.7 63 180/90 (120) 97 05/17/18 07:30 Room Air 05/17/18 04:00 67 05/17/18 04:00 97.7 69 133/81 (98) 97 05/17/18 00:00 74 05/17/18 00:00 98.0 71 139/88 (105) 98 Intake and Output 05/16/18 05/17/18 19:00 07:00 Intake Total 900 ml Output Total 950 ml 1400 ml Balance -50 ml -1400 ml IV Total 900 ml Output Urine Total 950 ml 1400 ml Laboratory Tests Test 05/17/18 05:43 White Blood Count 5.2 K/UL (4.8-10.8) Red Blood Count 3.71 M/UL (4.70-6.10) L Hemoglobin 10.9 G/DL (14.2-18.0) L Hematocrit 32.7 % (42.0-52.0) L Mean Corpuscular Volume 88 FL (80-99) Mean Corpuscular Hemoglobin 29.4 PG (27.0-31.0) Mean Corpuscular Hemoglobin Concent 33.3 G/DL (32.0-36.0) Red Cell Distribution Width 13.9 % (11.6-14.8) Platelet Count 56 K/UL (150-450) L Mean Platelet Volume 8.4 FL (6.5-10.1) Neutrophils (%) (Auto) % (45.0-75.0) Lymphocytes (%) (Auto) % (20.0-45.0) Monocytes (%) (Auto) % (1.0-10.0) Eosinophils (%) (Auto) % (0.0-3.0) Basophils (%) (Auto) % (0.0-2.0) Differential Total Cells Counted 100 Neutrophils % (Manual) 70 % (45-75) Lymphocytes % (Manual) 23 % (20-45) Monocytes % (Manual) 6 % (1-10) Eosinophils % (Manual) 1 % (0-3) Basophils % (Manual) 0 % (0-2) Band Neutrophils 0 % (0-8) Platelet Estimate Decreased L Platelet Morphology Normal Red Blood Cell Morphology Normal Sodium Level 134 MMOL/L (136-145) L Potassium Level 3.5 MMOL/L (3.5-5.1) Chloride Level 102 MMOL/L (98-107) Carbon Dioxide Level 23 MMOL/L (21-32) Anion Gap 9 mmol/L (5-15) Blood Urea Nitrogen 13 mg/dL (7-18) Creatinine 0.8 MG/DL (0.55-1.30) Estimat Glomerular Filtration Rate mL/min (>60) Glucose Level 106 MG/DL (74-106) Calcium Level 8.4 MG/DL (8.5-10.1) L Height (Feet): 5 Height (Inches): 10.00 Weight (Pounds): 160 Assessment/Plan Problem List: (1) anxiety disorder Assessment/Plan Ativan prn Restoril provided ro/Hemal Biggs MD May 17, 2018 21:24
--- NOTE | 2018-05-17 21:26 | General Progress Note ---
Assessment/Plan Problem List: (1) anxiety disorder Status: stable, progressing Assessment/Plan Ativan prn Restoril provided ro/st Subjective Date patient seen: May 17, 2018 Neurologic/Psychiatric: Reports: anxiety, depressed, emotional problems Allergies: Coded Allergies: No Known Allergies (Unverified , 12/12/17) Objective Last 24 Hour Vital Signs Date Time Temp Pulse Resp B/P (MAP) Pulse Ox O2 Delivery O2 Flow Rate FiO2 05/17/18 16:17 68 139/91 (107) 05/17/18 13:20 70 157/87 (110) 05/17/18 12:02 69 05/17/18 11:46 177/92 05/17/18 11:42 97.0 70 177/92 (120) 05/17/18 09:42 64 157/114 (128) 05/17/18 07:57 63 180/90 05/17/18 07:47 84 05/17/18 07:47 97.7 63 19 180/90 (120) 97 05/17/18 07:30 Room Air 05/17/18 04:00 67 05/17/18 04:00 97.7 69 19 133/81 (98) 97 05/17/18 00:00 74 05/17/18 00:00 98.0 71 19 139/88 (105) 98 Intake and Output 05/16/18 05/17/18 19:00 07:00 Intake Total 900 ml Output Total 950 ml 1400 ml Balance -50 ml -1400 ml IV Total 900 ml Output Urine Total 950 ml 1400 ml Laboratory Tests 05/17/18 05:43: White Blood Count 5.2, Red Blood Count 3.71L, Hemoglobin 10.9L, Hematocrit 32.7L , Mean Corpuscular Volume 88, Mean Corpuscular Hemoglobin 29.4, Mean Corpuscular Hemoglobin Concent 33.3, Red Cell Distribution Width 13.9, Platelet Count 56L, Mean Platelet Volume 8.4, Neutrophils (%) (Auto) , Lymphocytes (%) ( Auto) , Monocytes (%) (Auto) , Eosinophils (%) (Auto) , Basophils (%) (Auto) , Differential Total Cells Counted 100, Neutrophils % (Manual) 70, Lymphocytes % ( Manual) 23, Monocytes % (Manual) 6, Eosinophils % (Manual) 1, Basophils % ( Manual) 0, Band Neutrophils 0, Platelet Estimate DecreasedL, Platelet Morphology Normal, Red Blood Cell Morphology Normal, Sodium Level 134L, Potassium Level 3.5, Chloride Level 102, Carbon Dioxide Level 23, Anion Gap 9, Blood Urea Nitrogen 13, Creatinine 0.8, Estimat Glomerular Filtration Rate , Glucose Level 106, Calcium Level 8.4L Height (Feet): 5 Height (Inches): 10.00 Weight (Pounds): 160 General Appearance: alert, mild distress Neurologic: oriented x 3, responsive Hemal Alarcon MD May 17, 2018 21:26
--- NOTE | 2018-05-22 06:06 | Discharge Summary ---
Discharge Summary Discharge Summary _ DATE OF ADMISSION: 05/16/2018 DATE OF DISCHARGE: 05/17/2018 DISCHARGED BY: Dr. Misa Phillips CONSULTANTS: Dr. Ruel Alarcon BRIEF HOSPITAL COURSE: Patient is an unfortunate 72-year-old male, with history of metastatic colon cancer, lymphoma and renal cancer. He has history of left hydronephrosis with obstruction of the left ureter secondary to the compression. He had a ureteral stent that was placed several months ago and was admitted for exchange of stent. On 05/16/2018, he underwent cystoscopy, removal and exchange of left ureteral stent, left ureteroscopy with dilation of ureter, and retrograde pyelogram by Dr. Ruel Rice. He tolerated procedure well. He was admitted for postop care. He was given IV hydration. He was resumed on his home medications. He was continued on Toprol-XL 50 mg daily and clonidine 0.2 mg as needed. He was given Flomax. He was placed on Protonix for GI prophylaxis. Patient was with anxiety and fatigue. He complained of insomnia. He was seen by psychiatrist and was given Ativan as needed and Restoril. Following day, vital signs were stable. Blood work was stable. Jackson catheter was removed. He was cleared by urologist for discharge home. FINAL DIAGNOSES: Obstructive left-sided hydronephrosis at the level of mid ureter Status post cystoscopy, removal and exchange of left ureteral stent, left ureteroscopy with dilation of ureter and retrograde pyelogram Metastatic colon cancer Renal cancer Lymphoma Hypertension Paroxysmal atrial fibrillation Benign prostatic hypertrophy Anxiety disorder Insomnia DISPOSITION: Patient was discharged home. DISCHARGE MEDICATIONS: Refer to Discharge Medication List. Continue p.o. ciprofloxacin 500 mg twice daily x 5 days DISCHARGE INSTRUCTIONS: Follow-up in a week. I have been assigned to dictate discharge summary on this account, and I was not involved in the patient's management. Delores Hoffmann NP May 22, 2018 06:06
== END 2018-05-17 16:28 | disposition home or self-care (01) ==
LOC: SUR 05:07 → 2E 10:53
DX: N13.1 Hydronephrosis with ureteral stricture, not elsewhere classified (principal); Z85.038 Personal history of other malignant neoplasm of large intestine; Z85.528 Personal history of other malignant neoplasm of kidney; I10 Essential (primary) hypertension; I48.0 Paroxysmal atrial fibrillation; N40.0 Benign prostatic hyperplasia without lower urinary tract symptoms; F41.9 Anxiety disorder, unspecified; G47.00 Insomnia, unspecified; C85.90 Non-Hodgkin lymphoma, unspecified, unspecified site; Z86.718 Personal history of other venous thrombosis and embolism; Z79.01 Long term (current) use of anticoagulants
CPT/HCPCS: 36415; 51702; 52332; 52344; 74420; 76000; 80048; 85007; 85025; 96360; 96361; J0360; J0690; J2250; J2704; J3010; Q9961; 94003; 94150